=== PATIENT | female | born 1970 | race Caucasian/White ===

== ENCOUNTER 2021-10-07 13:27 | Emergency (ER) | payer SELFPAY ==
[~2021-10-07] VITALS: Ht 165.1 cm; Wt 144.5 kg
[2021-10-07] MEDS ORDERED: NORCO 325 MG-51 TAB PO (16:35)
[2021-10-07 17:00] VITALS: BP 116/68; PULSE 72; TEMP 97.8
--- NOTE | 2021-10-08 12:57 | NUR ---
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
== END 2021-10-07 17:00 | disposition home or self-care (01) ==
LOC: COL.ER 13:27
DX: M25.552 Pain in left hip (principal); W01.0XXA Fall on same level from slipping, tripping and stumbling without subsequent striking against object, initial encounter; Y93.01 Activity, walking, marching and hiking; Y92.59 Other trade areas as the place of occurrence of the external cause; Y99.0 Civilian activity done for income or pay

== ENCOUNTER 2021-12-16 13:45 | Outpatient (RCR) | payer OTHER ==
[~2021-12-16 13:45] MED LIST: NORCO 325 MG-51 TAB PO
== END 2022-01-03 | disposition home or self-care (01) ==
LOC: MKS.ESL.PT
DX: S70.02XA Contusion of left hip, initial encounter (principal); M54.2 Cervicalgia

== ENCOUNTER 2021-12-30 12:59 | Outpatient (RCR) | payer OTHER | END 2022-01-03 | LOC: WSOH | DX: S70.02XD Contusion of left hip, subsequent encounter (principal); M54.2 Cervicalgia; R42 Dizziness and giddiness; F31.9 Bipolar disorder, unspecified; F41.8 Other specified anxiety disorders; J45.909 Unspecified asthma, uncomplicated; E03.9 Hypothyroidism, unspecified; K21.9 Gastro-esophageal reflux disease without esophagitis; T78.40XA Allergy, unspecified, initial encounter; Z98.890 Other specified postprocedural states; Y99.0 Civilian activity done for income or pay ==

== ENCOUNTER 2022-01-20 15:26 | Outpatient (RCR) | payer OTHER | END 2022-02-03 | disposition still patient (30) | LOC: WSOH | DX: S70.02XD Contusion of left hip, subsequent encounter (principal); M54.2 Cervicalgia; R51.9 Headache, unspecified; R42 Dizziness and giddiness; Y99.0 Civilian activity done for income or pay; F31.9 Bipolar disorder, unspecified; F41.8 Other specified anxiety disorders; J45.909 Unspecified asthma, uncomplicated; E03.9 Hypothyroidism, unspecified; K21.9 Gastro-esophageal reflux disease without esophagitis; Z98.890 Other specified postprocedural states ==

== ENCOUNTER → 2022-05-18 | Outpatient (CLI) | payer BC | LOC: COL.RAD 08:36 | DX: K57.30 Diverticulosis of large intestine without perforation or abscess without bleeding (principal); K80.80 Other cholelithiasis without obstruction; N32.89 Other specified disorders of bladder | CPT/HCPCS: Q9967 ==

== ENCOUNTER → 2023-02-01 | Outpatient (CLI) | payer OTHER | LOC: MC.RAD 13:54 | DX: Z12.31 Encounter for screening mammogram for malignant neoplasm of breast (principal) ==

== ENCOUNTER → 2024-06-04 | Outpatient (CLI) | payer BC ==
[~2024-06-04] MED LIST changes: +Gadoterate 20 ML VIAL IV ONE; +Iohexol 300 - 100 ML VIAL IV ONE; +NS 100 ML IV SCH
== END ==
LOC: COL.RAD 14:20
DX: H53.9 Unspecified visual disturbance (principal); R20.0 Anesthesia of skin; R20.2 Paresthesia of skin; R40.4 Transient alteration of awareness
CPT/HCPCS: A9575; Q9967